=== PATIENT | male | born 1955 ===

== ENCOUNTER 2021-06-10 18:30 | Outpatient (CLI) | payer BC | END 2021-06-10 18:31 | disposition home or self-care (01) | LOC: SLEEPLAB 18:30 | PROVIDERS: ATTEND Family Medicine Sports Medicine | DX: G47.33 Obstructive sleep apnea (adult) (pediatric) (principal); G47.00 Insomnia, unspecified; R06.83 Snoring; E66.9 Obesity, unspecified; Z68.28 Body mass index [BMI] 28.0-28.9, adult | CPT/HCPCS: 95806 ==

== ENCOUNTER 2022-12-29 15:36 | Outpatient (CLI) | payer BC | END 2022-12-29 15:37 | disposition home or self-care (01) | LOC: SCSRAD 15:36 | PROVIDERS: ATTEND Family Medicine Sports Medicine | DX: M25.562 Pain in left knee (principal); M17.12 Unilateral primary osteoarthritis, left knee | CPT/HCPCS: 73565 ==